=== PATIENT | male | born 1955 | race African-American/Black ===

== ENCOUNTER 2023-03-25 09:09 | Emergency (ER) | payer OTHER, SELFPAY ==
--- NOTE | ~2023-03-25 | CT_ITS ---
EXAMINATION: CT cervical spine wo con DATE: 03/25/2023 09:54 INDICATION: Head injury. TECHNIQUE: Computed tomography (CT) of the cervical spine was performed without intravenous contrast. Automated exposure control and iterative reconstruction technique were employed. The dose-length pro duct was 419.25 mGy-cm. COMPARISON: None FINDINGS: There is mild emphysema. Bone alignment is normal. There is mild chronic anterior wedging o f T2 vertebral body. There is mildly decreased disc height at C5-C6 and moderately decreased disc hei ght at C6-C7. The following disc levels are specifically discussed: C2-C3: There is severe right and mild left uncovertebral joint osteoarthritis. There is moderate righ t and severe left facet joint osteoarthritis. There is mild left neural foraminal stenosis. There is no central canal stenosis. C3-C4: There is mild bilateral uncovertebral joint osteoarthritis. There is moderate bilateral facet joint osteoarthritis. There is mild left neural foraminal stenosis. There is no central canal stenosi s. C4-C5: There is no uncovertebral joint osteoarthritis. There is no facet joint osteoarthritis. There is no neural foraminal stenosis. There is mild central canal stenosis. C5-C6: There is mild bilateral uncovertebral joint osteoarthritis. There is mild right facet joint os teoarthritis. There is no neural foraminal stenosis. There is mild central canal stenosis. C6-C7: There is severe bilateral uncovertebral joint osteoarthritis. There is severe bilateral facet joint osteoarthritis. There is moderate bilateral neural foraminal stenosis. There is mild central ca nal stenosis. C7-T1: There is no uncovertebral joint osteoarthritis. There is severe bilateral facet joint osteoart hritis. There is mild bilateral neural foraminal stenosis. There is no central canal stenosis. IMPRESSION: 1. No fracture. 2. Moderate cervical spondylosis. 3. Mild emphysema. Reviewed, dictated and finalized at location A.
--- NOTE | ~2023-03-25 | CT_ITS ---
EXAMINATION: CT brain wo con DATE: 03/25/2023 09:54 INDICATION: Head injury. Fall. TECHNIQUE: Computed tomography (CT) of the head was performed without intravenous contrast. The mA wa s adjusted according to patient size. Iterative reconstruction technique was employed. The dose-lengt h product was 605.33 mGy-cm. COMPARISON: None FINDINGS: There is no intracranial hemorrhage, acute infarction, or abnormal intracranial mass lesion . There are scattered areas of low attenuation in the cerebral white matter. The ventricles are elva l in size. There are likely changes of ocular lens replacement surgeries. There are dystrophic calcif ications in right ocular globe. There is mucosal thickening in the paranasal sinuses. There is a blow out fracture of medial wall of left orbit. There is a lipoma in right anterior scalp. There is cerume n in left external auditory canal. The mastoid air cells are normal. IMPRESSION: 1. Moderate nonspecific cerebral white matter disease, which likely represents chronic small vessel i schemic disease. 2. Blowout fracture of medial wall of left orbit, probably chronic. Reviewed, dictated and finalized at location A. IMPRESSION: 1. Moderate nonspecific cerebral white matter disease, which likely represents chronic small vessel ischemic disease. 2. Blowout fracture of medial wall of left orbit, probably chronic.
[2023-03-25 09:07] VITALS: BP 147/86; PULSE 76; RESP 20; TEMP 36.5; O2SAT 100
--- NOTE | 2023-03-25 09:56 | ED.GENADULT ---
HPI - General Adult General Chief complaint: Fall Stated complaint: fall Time Seen by Provider: 03/25/23 09:13 Source: patient Mode of arrival: ambulatory Limitations: no limitations History of Present Illness HPI narrative: This is a 67-year-old male who presents to the ED via EMS from [facility] with chief complaint of of a fall occurring this morning just prior to arrival. He is alert and oriented x2 at baseline with dementia. Patient is able to recall the entirety of this events and why he is here today. He states that he was trying to roll out of bed to his left side and accidentally fell out of the bed. Reports he hit his head on the ground but denies any LOC. Denies blood thinners. Reports a laceration to the right eyebrow but he has no pain or injury anywhere else. Denies numbness, weakness, neurologic symptoms, urinary symptoms, chest pain, shortness of breath, fevers, chills, nausea, vomiting. Related Data Allergies Allergy/AdvReac Type Severity Reaction Status Date / Time No Known Allergies Allergy Verified 03/25/23 09:36 Review of Systems Review of Systems: All systems as dictated in HPI Exam Narrative: GENERAL: Well-appearing, well-nourished, and in no acute distress. HEAD: Normocephalic, atraumatic. EYES: PERRLA and EOMI. the orbits are without tenderness or crepitus. No bruising. ENT: Nares clear, no rhinorrhea or epistaxis. Mucous membranes moist. Oropharynx without tonsillar hypertrophy exudate or other lesions. NECK: Supple. No adenopathy or masses. CHEST: No respiratory distress. Clear to auscultation. No wheezes rales or rhonchi HEART: Regular rate and rhythm. No murmur heard. Normal peripheral pulses. ABDOMEN: Soft, nontender, nondistended, normal active bowel sounds. MSK: Normal range of motion. No edema. MSK exam is overall benign with no tenderness and no problems with range of motion of the joints and extremities. SKIN: There is a 3 cm angled laceration just above the right eyebrow. Bleeding controlled. Minimal tenderness. NEURO: Alert and oriented x2 which is baseline. Stated the year was 2023. Cranial nerves II through XII intact. No focal deficits. No dysarthria. 5 out of 5 strength and sensation in the upper and lower extremities. PSYCH: Normal mood and affect. Course Vital Signs Vital signs: Vital Signs Temperature 97.7 F 03/25/23 09:07 Pulse Rate 76 03/25/23 09:07 Respiratory Rate 20 03/25/23 09:07 Blood Pressure 147/86 H 03/25/23 09:07 Pulse Oximetry 100 03/25/23 09:07 Oxygen Delivery Room Air 03/25/23 09:07 Temperature 97.7 F 03/25/23 09:07 Pulse Rate 71 03/25/23 11:36 Respiratory Rate 18 03/25/23 11:36 Blood Pressure 137/84 03/25/23 11:36 Pulse Oximetry 100 03/25/23 11:36 Oxygen Delivery Room Air 03/25/23 09:07 Procedures Laceration Laceration 1: Date: 03/25/23 Time: 11:00 Site: face Side (If applicable): right Size (cm): 3 Description: irregular and clean Depth: simple, single layer Local Anesthetic: lidocaine 1% and with epi Amount of anesthesia used (mL): 2 Pre-repair: wound explored and irrigated extensively ====== Skin Level ====== Skin layer closed with: nylon Size (cm): 5-0 Number of sutures: 4 Technique: simple, interrupted ====== Subcutaneous Layer ====== ====== Muscle Layer ====== ====== Tendon Layer ====== Dressing: None Medical Decision Making MDM Narrative Medical decision making narrative: This is a 67-year-old male who presents to the ED with chief complaint of head injury after fall today. Rolled out of bed on accident and fell onto his head. Alert and oriented to baseline. Vitals are normal. Exam shows a corner laceration above the eyebrow on the right side the laceration was. Otherwise exam is benign including a normal, baseline neurologic exam. CT head and cervic
[2023-03-25 11:36] VITALS: BP 137/84; PULSE 71; RESP 18; O2SAT 100
== END 2023-03-25 12:05 ==
PROVIDERS: Emergency Provider Physician Assistant
DX: S01.111A Laceration without foreign body of right eyelid and periocular area, initial encounter (principal); F03.90 Unspecified dementia, unspecified severity, without behavioral disturbance, psychotic disturbance, mood disturbance, and anxiety; W06.XXXA Fall from bed, initial encounter
CPT/HCPCS: 12013; 70450; 72125; 99284